=== PATIENT | female | born 1950 ===

== ENCOUNTER → 2017-02-04 | Outpatient (REF) | payer BC | LOC: M LAB REF 13:01 | PROVIDERS: ATTEND Nurse Practitioner Adult Health | DX: N39.0 Urinary tract infection, site not specified (principal) ==

== ENCOUNTER → 2020-03-16 | Outpatient (CLI) | payer BC ==
--- NOTE | 2020-03-16 10:53 | REP ---
Clinical: Sprain. Technique: AP, lateral, bilateral oblique and sunrise views of the right knee. Findings: Mild age-related arthritic changes are appreciated including subtle spurring along the medial and lateral compartments with increased sclerosis to the tibial plateau and minimal tibiofemoral joint space narrowing. Lateral and sunrise views demonstrate moderate arthritic changes to the patella and patellofemoral joint space. Suprapatellar effusion suggested. No obvious acute fracture or dislocation. Impression: Tricompartmental osteoarthritic degenerative changes. Suprapatellar effusion. Electronically Signed by Kt Holley MD 03/16/2020 10:45 A
== END ==
LOC: M WUC 09:39
PROVIDERS: ATTEND Physician Assistant
DX: M17.11 Unilateral primary osteoarthritis, right knee (principal)

== ENCOUNTER → 2022-06-05 | Outpatient (REF) | payer MEDICARE ==
[2022-06-05 17:23] LABS: WBC, URINE 30-40 /hpf (0-3)
[2022-06-05 17:24] LABS: BACTERIA, URINE LARGE AMOUNT; SQUAMOUS EPITHELIAL CELL URINE SMALL AMOUNT /hpf (SMALL AMT)
[2022-06-05 17:25] LABS: CALCIUM OXALATE CRYSTALS,URINE MOD AMOUNT /hpf
[2022-06-05 17:26] LABS: AMORPHOUS SEDIMENT, URINE SMALL AMOUNT (NEGATIVE)
== END ==
LOC: M LAB REF 16:25
PROVIDERS: ATTEND Nurse Practitioner Adult Health
DX: N39.0 Urinary tract infection, site not specified (principal)

== ENCOUNTER → 2024-10-01 | Outpatient (REF) | payer MEDICARE | LOC: M LAB REF 12:52 | PROVIDERS: ATTEND Nurse Practitioner Family | DX: N39.0 Urinary tract infection, site not specified (principal) ==

== ENCOUNTER → 2024-10-19 | Outpatient (REF) | payer MEDICARE | LOC: M LAB REF 16:30 | PROVIDERS: ATTEND Nurse Practitioner Adult Health | DX: N39.0 Urinary tract infection, site not specified (principal) ==